=== PATIENT | female | born 1925 | race Caucasian/White ===

== ENCOUNTER 2017-01-04 17:07 | Inpatient (IN) ==
[2017-01-04] MEDS ORDERED: NS 1,000 ML ONE ×2 (17:26→17:35)
[2017-01-04] MEDS ORDERED: NS 1,000 ML IV ONE (17:41)
[2017-01-04] MEDS ORDERED: CARDIZEM ONE (17:41)
[2017-01-04] MEDS ORDERED: ASPIRIN PO STA (17:41)
[2017-01-04] MEDS ORDERED: CARDIZEM IV ONE (17:41)
[2017-01-04 18:01] LABS: BASO% 0.2 % (0.0-0.8); EOS# 0.01 X1000 (0.0-0.7); EOS% 0.1 % (0.0-10.0); HEMATOCRIT 34.4 % (37.0-47.0); LYMPH# 1.18 X1000 (1.2-3.4); LYMPH% 13.1 % (20.5-51.1); MANUAL DIFF NEEDED? NO; MCH 29.9 PG (27-31); MCHC 34.9 g/dL (33-37); MCV 85.6 FL (81-99); MONO# 0.96 X1000 (0.11-0.59); MONO% 10.7 % (1.7-9.3); MPV 10.6 FL (7.4-10.4); NEUT% 75.9 % (42.2-75.2); PLT 259 X1000 (130-400); RBC 4.02 XMIL (4.2-5.4)
[2017-01-04 18:07] LABS: INR 1.15; PROTIME 12.2 Seconds (9.2-11.7); PTT 30.3 Seconds (22.0-36.0)
--- NOTE | 2017-01-04 18:09 | PROVIDER DOCUMENTATION ---
HPI-General Adult - General Chief Complaint: Fever Stated Complaint: weakness/fall Time Seen by Provider: 01/04/17 17:39 Source: patient Allergies/Adverse Reactions: Patient Allergies Allergy/AdvReac Type Severity Reaction Status Date / Time No Known Allergies Allergy Verified 09/28/14 03:13 Home Medications: Home Medication List Medication Instructions Recorded Confirmed Last Taken Type Carboxymethylcellulose Sodium PRN 09/28/14 09/28/14 01/03/17 History [Thera Tears] Cyanocobalamin (Vitamin B-12) 1,000 mcg IJ DIRECTED 09/28/14 09/28/14 History [Cyanocobalamin Injection] Diltiazem HCl [Diltiazem ER] 240 mg PO BID 09/28/14 09/28/14 01/03/17 History FA/Vit C/E/Zinc/Copper/Lut/Barbie 1 tbs PO DAILY 09/28/14 09/28/14 01/03/17 History [Ocuvel Capsule] Irbesartan 300 mg PO DAILY 09/28/14 09/28/14 01/03/17 History Levothyroxine [Synthroid] 100 mcg PO DAILY 09/28/14 09/28/14 01/03/17 History Metoprolol [Lopressor] 50 mg PO BID 09/28/14 09/28/14 01/03/17 History Multivitamins/Minerals [Centrum 1 tab PO DAILY 09/28/14 09/28/14 01/03/17 History Silver] Potassium Chloride 20 meq PO BID 09/28/14 09/28/14 01/03/17 History Warfarin [Coumadin] 4 mg PO QHS 09/28/14 09/28/14 01/03/17 History Digoxin 250 mcg PO DAILY #0 10/01/14 09/28/14 01/03/17 Rx Tramadol HCl [Ultram] 50 mg PO Q8HR PRN #30 tablet 10/01/14 12/29/16 Rx - History of Present Illness -Gen Adult Nature of Presenting Problems: pt presents with malaise ("not feeling good") for sev days, has been getting worse. When questioned, son decribes sx as often as she does. She is unfortunately, a vague historian. ROS reveals fever, was 100.9 here. She had a fever Fri, yest, but none now. Her R eyelid has been red, swollen, droopy, this started some time since Thursday. She has been a little SOB. Palpitations from time to time. No abd pain, no N/V/D, no dysuria, no prob with extremities. Location of Pain/Injury: reports: none Pain Radiation: reports: no radiation Quality of Pain: reports: none Onset/Duration: reports: 3 days ago Timing: reports: still present, getting worse Context/Activities at Onset: reports: none Modifying Factors: improves with: nothing Associated Symptoms: reports: fatigue, fever/chills, malaise, shortness of breath, weakness. denies: chest pain, cough, diarrhea, vomiting Recently seen or treated by another doctor?: No Review of Systems - Adult - REVIEW OF SYSTEMS - ADULT Constitutional: reports: see HPI, fever, fatique Eyes: reports: see HPI Ears, Nose, Mouth & Throat: reports: no symptoms reported Cardiovascular: reports: see HPI Respiratory: reports: see HPI Gastrointestinal: reports: no symptoms reported Genitourinary: reports: no symptoms reported Musculoskeletal: reports: no symptoms reported Integumentary: reports: no symptoms reported Neurological: reports: see HPI Psychiatric: reports: no symptoms reported Endocrine: reports: no symptoms reported Hematologic/Lymphatic: reports: no symptoms reported Allergic/Immunologic: reports: no symptoms reported Past History - Adult - PAST MEDICAL HISTORY-ADULT Review of Records: reports: Medications Reviewed Cardiovascular: reports: A-Fib, HTN Respiratory: reports: denies history Gastrointestinal: reports: denies history Genitourinary: reports: denies history Musculoskeletal: reports: other fractures (pelvic) - SOCIAL HISTORY Smoking: denies Physical Exam-General - PHYSICAL EXAM-ADULT Initial Vital Signs Reviewed: Yes - CONSTITUTIONAL General Appearance: alert, mild distress - EYES Eyes: PERRL/EOMI, pink conjunctivae, other (R upper lid is drooping, sl erythema , sl swelling.) - HEAD, EARS, NOSE, MOUTH & THROAT HENMT: normocephalic/atraumatic, moist mucous membranes, normal ENT inspection, pharynx normal - NECK Neck: full range of motion, supple - RESPIRATORY Respiratory: lungs clear, normal breath sounds, no pleuratic chest pain, no respiratory distress, no accessory muscle use - CARDIOVASCULAR Cardiovascular: irregularly irregular - GASTROINTESTINAL (ABDOMEN) Abdominal Exam: non tender, soft - MUSCULOSKELETAL Back Exam: normal inspection, no CVA tenderness, no vertebral tenderness Extremity: normal range of motion, non-tender Peripheral Pulses: radial (R): 4+, radial (L): 4+ DTR: bicep (R): 4+, bicep (L): 4+, knee (R): 4+, knee (L): 4+, ankle (R): 4+, ankle (L): 4+ - SKIN Integumentary: normal color, normal turgor, warm/dry - NEUROLOGIC Neurologic: no motor/sensory deficits, other (CN II-XII intact, DTRs intact) - PSYCHIATRIC Psych/Mental Status: normal mood/affect, normal thought content, normal thought process, oriented x 3 Progress - PLAN OF CARE/RESULTS Progress/Plan/Lab Results: Vital Signs - 8 hr 01/04/17 17:28 Temperature 99.2 F Pulse Rate 134 H Respiratory Rate 22 Blood Pressure 134/109 O2 Sat by Pulse Oximetry 91 L Laboratory Results - last 24 hr 01/04/17 17:28 WBC 8.98 RBC 4.02 L Hgb 12.0 Hct 34.4 L MCV 85.6 MCH 29.9 MCHC 34.9 RDW Std Deviation 13.0 Plt Count 259 MPV 10.6 H Immature Gran % (Auto) 0.0 Neut % (Auto) 75.9 H Lymph % (Auto) 13.1 L Young % (Auto) 10.7 H Eos % (Auto) 0.1 Baso % (Auto) 0.2 Immature Gran # (Auto) 0.00 Neut # (Auto) 6.81 H Lymph # (Auto) 1.18 L Young # (Auto) 0.96 H Eos # (Auto) 0.01 Baso # (Auto) 0.02 Orders Category Date Time Status Cardiac Monitoring DIRECTED Care 01/04/17 17:41 Active IV Insertion ORDERED Care 01/04/17 17:52 Completed Oxygen Therapy- ED Nursing DIRECTED Care 01/04/17 17:41 Active Saline Loc NOW Care 01/04/17 17:41 Active CHEST-PORTABLE [RAD] Stat Exams 01/04/17 17:41 Taken BLOOD CULTURE [BLDCUL] Stat Lab 01/04/17 17:48 Ordered CBC WITH ELECTRONIC DIFF [HEME] Stat Lab 01/04/17 17:28 Completed CK PROFILE [SP CHEM] Stat Lab 01/04/17 17:28 Received COMPREHENSIVE METABOLIC PANEL [CHEM] Stat Lab 01/04/17 17:28 Received D-DIMER [CHEM] Stat Lab 01/04/17 17:28 Received DIGOXIN [TDM] Stat Lab 01/04/17 17:28 Received LACTATE, PLASMA [CHEM] Stat Lab 01/04/17 17:28 Received MAGNESIUM [CHEM] Stat Lab 01/04/17 17:28 Received PRO B-NATRIURETIC PEPTIDE Stat Lab 01/04/17 17:28 Received PROTIME WITH INR [COAG] Stat Lab 01/04/17 17:28 Received PTT [COAG] Stat Lab 01/04/17 17:28 Received TROPONIN T Stat Lab 01/04/17 17:28 Received UA NIMS W/REFLEX CULT [URINALYSIS] Stat Lab 01/04/17 17:41 Uncollected 0.9% Sodium Chloride Inj [Ns] 1,000 ml Med 01/04/17 17:35 Discontinued .ROUTE As Directed 0.9% Sodium Chloride Inj [Ns] 1,000 ml Med 01/04/17 17:41 Active IV 100 mls/hr Aspirin Med 01/04/17 17:41 Discontinued 325 mg PO STAT STA Diltiazem [Cardizem] Med 01/04/17 17:41 Discontinued 15 mg IV NOW ONE Diltiazem [Cardizem] Med 01/04/17 17:41 Discontinued 25 mg .ROUTE .STK-MED ONE EKG [EKG] Stat Ther 01/04/17 17:41 Ordered Result Diagrams: 01/04/17 17:28 01/04/17 17:28 - CONSULTS/PCP/HOSPITALIST Notification #1 *Consult/PCP/Hospitalist*: Eloy Time Discussed: 18:50 Consult Disposition: Will see in ED, Admit Departure - Departure Date of Disposition Decision: 01/04/17 Time of Disposition Decision: 19:01 DIAGNOSIS: Hyponatremia Disposition: ADMITTED INPATIENT 09 Certified Medical Emergency: Emergent Condition: Good Referrals and Follow-Ups: Maira Lyons MD [Primary Care Provider] - - Critical Care Note This patient required my direct & personal management of CC.: No
--- NOTE | 2017-01-04 18:18 | Diag Imaging Result Doc PS360 ---
CHEST-PORTABLE - 01/04/2017 INDICATION: SOB TECHNIQUE: COMPARISON: 09/29/2014 FINDINGS: Stable hyperexpanded lungs compatible with COPD. Stable mild cardiomegaly. No focal infiltrates, pneumothorax, or pleural effusion. Pulmonary vascularity is grossly normal. IMPRESSION: No change from prior. Electronically signed by Jalil Campoverde 01/04/2017 6:16 PM
[2017-01-04 18:23] LABS: URINE MICRO REVIEW NEEDED? NO; URINE SOURCE CATH
[2017-01-04 18:28] LABS: BILIRUBIN URINE NEGATIVE (NEGATIVE); BLOOD URINE NEGATIVE (NEGATIVE); COLOR YELLOW; GLUCOSE URINE NEGATIVE (NEGATIVE); LEUKOCYTES URINE NEGATIVE (NEGATIVE); NITRITE URINE NEGATIVE (NEGATIVE); PROTEIN URINE 100 mg/dL (NEGATIVE); SP GRAVITY URINE 1.017; TURBIDITY URINE HAZY (CLEAR); UR EPITHELIAL CELLS <10 /HPF (<10); URINE BACTERIA 4+ /HPF; URINE CULTURE NEEDED? YES; URINE RBC <10 /HPF (<10); URINE WBC <10 /HPF (<10); UROBILINOGEN URINE NORMAL (NORMAL)
[2017-01-04 18:47] LABS: CALCIUM 8.6 mg/dL (8.8-10.2); POTASSIUM 3.8 mmol/L (3.5-5.1); TOTAL BILIRUBIN 0.76 mg/dL (0.20-1.00); TOTAL PROTEIN 7.9 g/dL (6.3-8.3)
[2017-01-04] MEDS ORDERED: NS 500 ML IV ONE (18:49)
[2017-01-04] MEDS ORDERED: LASIX IV SCH (19:45)
[2017-01-04] MEDS ORDERED: LASIX IV ONE (19:46)
[2017-01-04] MEDS ORDERED: MISC. PHARMACY COMMUNICATION SCH (20:00)
[2017-01-04] MEDS ORDERED: ZOFRAN IV PRN (20:27)
[2017-01-04] MEDS ORDERED: CARDIZEM 100 MG/NS 100 MG/100 ML IVPB IV SCH (20:27)
[2017-01-04] MEDS ORDERED: TOBRAMYCIN 100 MG in NS 100 ML IV ONE (20:27)
[2017-01-04] MEDS ORDERED: TYLENOL PO PRN (20:27)
--- NOTE | 2017-01-04 20:59 | Diag Imaging Result Doc PS360 ---
HEAD W/O CONTRAST - 01/04/2017 INDICATION: HEADACHE TECHNIQUE: A CT dose reduction protocol was used. COMPARISON: 09/28/2014 FINDINGS: Stable diffuse atrophy and chronic microvascular disease. Stable small calcified extra-axial nodule compatible with a small right temporal lobe meningioma. This measures about 1 cm. No hemorrhage or mass effect. The skull is intact. The sinuses, mastoids, and middle ears are clear. IMPRESSION: No change from prior. Electronically signed by Jalil Campoverde 01/04/2017 8:57 PM
[2017-01-04] MEDS ORDERED: COUMADIN PO SCH (21:00)
[2017-01-04] MEDS: CARDIZEM 100 MG/NS 100 MG/100 ML IVPB IV SCH (21:02)
[2017-01-04] MEDS: KLOR-CON PO SCH (21:58)
[2017-01-04] MEDS: ROCEPHIN 1 GM/NS 1 GM/50 ML IVPB IV SCH (22:00)
[2017-01-05 05:28] LABS: CALCIUM 8.2 mg/dL (8.8-10.2); POTASSIUM 2.9 mmol/L (3.5-5.1)
--- NOTE | 2017-01-05 05:43 | EKG Report ---
Test Performed on : 01/04/2017 5:28:44 PM Test Reason : CP/Re-Ordered Blood Pressure : / mmHG Vent. Rate : 149 BPM Atrial Rate : 131 BPM P-R Int : 000 ms QRS Dur : 116 ms QT Int : 324 ms P-R-T Axes : 000 096 -17 degrees QTc Int : 510 ms Atrial fibrillation. with rapid ventricular response. Right bundle branch block Abnormal ECG When compared with ECG of 28-SEP-2014 04:50, Vent. rate has increased BY [address] more depressed in Anterior leads Unconfirmed Result
[2017-01-05] MEDS: SYNTHROID PO SCH (06:24)
--- NOTE | 2017-01-05 08:48 | PROGRESS NOTE ---
DATE: 01/05/2017 SUBJECTIVE: Mrs. Jauregui was admitted to [facility] with atrial fibrillation with rapid ventricular rate. She has a longstanding history of chronic atrial fibrillation. Her heart rate had been in the range of 115-120. We started a Cardizem drip last night and her heart rate is ranging from 93 to 110. She denies any chest pain, dyspnea or anginal equivalents. Interestingly, both of her troponins are elevated. Her initial troponin was 0.095 and her 2nd troponin was 0.113. She denies any PND orthopnea or increasing peripheral edema. Her serum sodium has increased from 119-127. She seems much more alert and easily arousable. This morning, she answered questions appropriately. She is oriented to name and place. OBJECTIVE: Vital signs: Temperature 99.2, pulse 106 and irregular, respiratory rate 21, BP 141/84. O2 saturations 98-99% on 2 L of O2. Cardiovascular: Irregularly irregular. Lungs: Clear. Abdomen: Soft, nontender, with active bowel sounds. No hepatosplenomegaly. No abdominal bruits. ASSESSMENT AND PLAN: 1. Chronic atrial fibrillation with rapid ventricular rate. We will continue to titrate the Cardizem drip to maintain her heart rate below 100. I am going to resume the metoprolol 50 mg b.i.d. Once her heart rate is consistently below 100, we will try to switch her back to oral Cardizem. Previously, she had been taking Cardizem 240 mg b.i.d. Her ProTime is subtherapeutic. I am going to increase the Coumadin to 7.5 mg at night. We will recheck a 2D echocardiogram as well. Her troponins are elevated. The CKs are normal. I am not sure whether this truly represents a non-ST segment elevation myocardial infarction, or whether the troponin is falsely elevated due to the renal insufficiency. We will consult Cardiology. 2. Urinary tract infection. Her urine smelled very pungent last night. I have started Rocephin and tobramycin pending cultures. 3. Hypokalemia. I am going to recheck a magnesium level. If the magnesium is low I will replace the magnesium prior to giving her additional potassium. 4. Primary hypothyroidism. Her TSH was 5.48. I increased the levothyroxine to 112 mcg daily. 5. Hyponatremia I do not believe that there is any evidence of SIADH. Serum sodium has jumped from 119 to 127. cc: Gabi Lyons MD MTDD
[2017-01-05] MEDS: CENTRUM SILVER PO SCH (08:51)
[2017-01-05] MEDS: LOPRESSOR PO SCH ×2 (08:51→21:17)
[2017-01-05] MEDS: OCUVITE LUTEIN & ZEAXANTHIN PO SCH (08:51)
[2017-01-05] MEDS: KLOR-CON PO SCH ×2 (08:51→21:17)
[2017-01-05] MEDS: POTASSIUM CHLORIDE 20 MEQ/SWI 20 MEQ/100 ML IVPB IV SCH ×2 (08:52→10:38)
[2017-01-05] MEDS: LOVENOX SUBQ SCH (08:52)
[2017-01-05] MEDS: LANOXIN PO SCH (08:52)
[2017-01-05] MEDS: AVAPRO PO SCH (08:53)
--- NOTE | 2017-01-05 09:53 | HISTORY AND PHYSICAL ---
CHIEF COMPLAINT: Lethargy. HOSPITAL COURSE: Ms. Jauregui is an 89-year-old lady with a history of chronic atrial fibrillation, essential hypertension, mixed hyperlipidemia, primary hypothyroidism and mild cognitive impairment, who is well known to me. She was brought to the ER for evaluation of lethargy. As stated earlier, she does have a longstanding history of chronic atrial fibrillation. She remains in atrial fibrillation. Her heart rate was fluctuating in the range of 110-130. She denied any chest pain, but was with complaint of mild dyspnea with activities of daily living and palpitations. She denied any PND or orthopnea, but did have dyspnea with exertion and mild increasing peripheral edema. Her proBNP was in excess of 6,000. The family reported that she had been more lethargic and difficult to arouse. She had basically been in bed and required assistance getting out of bed in order to use a bedside commode. They felt that she was more confused and disoriented at times. Her CT scan of the brain demonstrated chronic white matter changes. There was no evidence of an acute stroke. She was noted to have a very pungent smelling urine. Her initial urinalysis is clear. Cultures were obtained. Her chest x-ray was grossly normal. PAST MEDICAL HISTORY: As above. PAST SURGICAL HISTORY: Hemorrhoidectomy. ALLERGIES: No known drug allergies. FAMILY HISTORY: Father had hypertension. at the age of 55. Her mother had Alzheimer's dementia and at the age of 87. SOCIAL HISTORY: She denies the use of tobacco, alcohol, or illicit drugs. She is a . MEDICATIONS: Vitamin B12 injections monthly, diltiazem 240 mg b.i.d., Flomax 0.4 mg daily, Lopressor 50 mg b.i.d., KCl 20 mEq b.i.d., Synthroid 100 mcg daily, Ultram 1 tablet q.8 hours p.r.n. pain, Coumadin 4 mg at bedtime. REVIEW OF SYSTEMS: She denies any recent weight gain or weight loss.HEENT: She wears glasses. She is hard of hearing. Cardiovascular: No chest pain. She has palpitations. Pulmonary: She has dyspnea with exertion. No paroxysmal nocturnal dyspnea or orthopnea. GI: No reflux, dysphagia, melena, hematochezia, change in bowel habits, or rectal bleeding. Endocrine: No polyuria, no polydipsia. No cold or heat intolerance. Skin: No easy bruisability. : She has leakage of urine with coughing or laughing. Skin: No easy bruisability. Neurologic: No migraines or seizures. Psychiatric: No history of depression. PHYSICAL EXAMINATION: GENERAL: This is in a chronically ill-appearing, 89-year-old lady in no apparent distress. VITAL SIGNS: Temperature 99.3 degrees, pulse 126 and irregular, respiratory rate 24, blood pressure 153/88. HEENT: Fundi with arteriolar wall thickening. Pupils equal, round, reactive to light. Extraocular eye movements intact. TMs without bullae. NECK: Supple. No masses, jugular venous distention, or bruits. CARDIOVASCULAR: Irregularly irregular with a soft systolic murmur at the left sternal margin. LUNGS: Decreased breath sounds with increased period of expiration. There are faint crackles in the bases. ABDOMEN: Soft, nontender, with active bowel sounds. EXTREMITIES: With trace ankle edema. SKIN: No palpable purpura. BREASTS/BOTTLE INSPECTOR/RECTAL EXAMINATION: Deferred. NEUROLOGICAL: She moves all extremities grossly. She seems somewhat sedated. She is oriented to name and place. LABORATORY STUDIES: Various laboratory studies were obtained. A CBC demonstrated a white count of 8.98, hemoglobin 12, hematocrit 34.4, and a platelet count of 259,000. Her prothrombin time was 12.2 with an INR of 1.1. A CMP demonstrates the following: Sodium 119, potassium 3.8, chloride 78, CO2 23, BUN 32, creatinine 1.4. Serum osmolality 261. ProBNP and 6930. Troponin 0.095. Lactate 1.6. Urine osmolality 423. Urine sodium 110. ASSESSMENT AND PLAN: 1. Chronic atrial fibrillation with rapid ventricular rate. I will admit her to the intensive care unit. I will hold oral Cardizem and Toprol. I will continue digoxin and place her on a Cardizem drip and titrate to maintain a heart rate less than 100. We will check serial cardiac enzymes. We will arrange for a 2D echocardiogram with color Doppler and spectral flow Doppler in the morning. I will begin Lovenox 40 mg subcutaneously daily and increase the Coumadin to 7.5 mg at night. I want the INR between 2 and 3. 2. Metabolic encephalopathy. I suspect that the metabolic encephalopathy is due to the hyponatremia. She has a serum sodium of 119. She appears to be mildly volume overloaded. I do not believe that she has syndrome of inappropriate antidiuretic hormone secretion given the volume overload. We will diurese her with Lasix and place her on a salt and fluid restricted diet. I will recheck a BMP in the morning. 3. Primary hypothyroidism. I will increase the Synthroid to 112 mcg daily, as her TSH was 5.48. 4. Suspected urinary tract infection. I will begin Rocephin and tobramycin, pending a urine culture and sensitivity. Ms. Jauregui has a living will. She has stated that in the event of a cardiopulmonary arrest that she does not want any heroic measures to be undertaken. A No Code Blue Level 1 has been established. Given her clinical presentation and comorbid conditions, I believe that admission to the hospital is both reasonable and necessary. I anticipate that she will be in the hospital for at least 2 midnights and I will therefore place her in inpatient status. cc: Gabi Lyons MD
[2017-01-05] MEDS: CARDIZEM 100 MG/NS 100 MG/100 ML IVPB IV SCH (10:36)
--- NOTE | 2017-01-05 11:20 | CONSULTATION ---
DATE OF CONSULTATION: 01/05/2017 INDICATION: Atrial fibrillation, elevated BNP and troponin levels. HISTORY OF PRESENT ILLNESS: Ms. Jauregui is an 89-year-old, white female with a history of chronic atrial fibrillation, hypertension, and hyperlipidemia. She is a patient of Dr. Lyons and last saw Dr. Upton in the clinic a little over 3 years ago. She was brought into the ER for evaluation of general malaise for roughly the last week. She cannot think of any inciting factors but thinks that she may have had a little dysuria and has had not had much solid food oral intake. She has had issues with atrial fibrillation in the past but seems to be tolerating it from a rate control standpoint with chronic atrial fibrillation. She has been maintained on Coumadin in the interim. No recent fevers that she is aware of and no recent vomiting, although there may have been some nausea. The patient is a somewhat difficult historian. She is not having any episodes of diarrhea. No recent cough. She has generalized pain complaints throughout but no specific chest complaint. PAST MEDICAL HISTORY: 1. Significant for hypertension. 2. Chronic atrial fibrillation. 3. Hyperlipidemia. 4. Hypothyroidism. 5. Mild cognitive impairment. SOCIAL HISTORY: No tobacco, alcohol, or illicit drugs. She is a . Son is present at bedside. FAMILY HISTORY: Father had hypertension. Mother had Alzheimer's. REVIEW OF SYSTEMS: A 10 system review of systems is negative except for those things mentioned in the HPI. However, it is a somewhat limited history secondary to the patient's cognitive impairment. PHYSICAL EXAMINATION: Vital Signs: Most recently, she has been afebrile here. She had a T-max of 100 degrees at 1812. Her blood pressure is 159/79. Heart rate is 108 this morning. General: She is in no acute distress. HEENT: Oropharynx is moist. Poor dentition. Eye examination shows pink conjunctivae and white sclerae. Neck: Examination shows no obvious thyromegaly or thyroid tenderness. Cardiovascular: She is in an irregularly irregular rate and rhythm, consistent with her chronic atrial fibrillation. She is rate controlled this morning. She has no lower extremity edema. Chest: Examination is relatively clear. She has a poor inspiratory effort. No increased work of breathing. Abdomen: Soft, nontender, and nondistended. She has no obvious organomegaly. Skin Examination: Warm and dry throughout without any rashes. Neurological: She seems to be moving all extremities well. She has no obvious lateralizing deficits. No increased work of breathing. Psychiatric: She is alert, oriented, and pleasant. She has normal mood and affect. PERTINENT DATA: She had an EKG showing what appears to be a right bundle branch block. She has diffuse ST depression throughout the anterior and inferior leads. She appears to be in atrial fibrillation. She had a head CT performed which demonstrates no obvious acute changes. She has a right temporal lobe meningioma, chronic microvascular changes. She had a chest x-ray performed, demonstrating no obvious changes from prior. Laboratory data shows white count of 8.98, her hematocrit is 34, her platelet count is 259,000. Her INR is 1.15. D-dimer is normal. Sodium is 127 with an original of 119, potassium 2.9, BUN 28, creatinine 1.1. Cardiac enzymes have been minimally elevated with the initial of 0.095 with subsequent of 0.113. Her magnesium level is 1.9 this morning. Her lactate level on presentation was 1.6. Her urinalysis had 4+ bacteria with less than 10 WBCs per high-powered field. Digoxin level is 0.3. ASSESSMENT: 1. Chronic atrial fibrillation. 2. General lethargy and malaise. PLAN: She may have some diastolic heart failure. However, she did not have any evidence of pulmonary edema on her chest x-ray. She has already diuresed a significant amount with 1 dose of Lasix and is negative around 1 L thus far. Her sodium has come up quite a bit which could be the source of many of her symptoms. I will hold off the Samsca. She has already corrected 8 points on her sodium in less than 24 hours. May consider a dose tomorrow. We may consider outpatient diuretics. For now, we will plan on continuing on the current course, following up on her ultrasound. cc: MD Gabi Salazar MD
--- NOTE | 2017-01-05 14:49 | ECHO REPORT ---
ORDER DATE: 01/05/2017 ECHOCARDIOGRAPHIC MEASUREMENTS: 1. Interventricular septum 1.0. Left ventricular posterior wall 1.0. Diastolic diameter 4.6. Left atrium 5. Aorta 3.7. 2. Normal left ventricular cavity size. Estimated ejection fraction of 55%. There is moderate mitral annular calcification. Mitral valve leaflets are mildly thickened, opening normally. Aortic valve leaflets are trileaflet, sclerosed. 3. Tricuspid valve was normal. Pulmonic valve was normal. 4. Peak velocity across the aortic valve less than 2 m/sec. There is no aortic stenosis. There is mild aortic regurgitation. There is moderate mitral regurgitation. There is mild tricuspid regurgitation. Peak velocity across the tricuspid valve was 3 m/sec. Pulmonary artery systolic pressure of 50 mmHg. There is trace pulmonary regurgitation. 5. There is no pericardial effusion or obvious intracardiac mass or thrombus seen. cc: MD Gabi Márquez MD
[2017-01-05] MEDS: ROCEPHIN 1 GM/NS 1 GM/50 ML IVPB IV SCH (21:17)
[2017-01-05] MEDS: COUMADIN PO SCH (21:17)
[2017-01-06] MEDS: CARDIZEM 100 MG/NS 100 MG/100 ML IVPB IV SCH (05:23)
[2017-01-06] MEDS: SYNTHROID PO SCH (06:20)
[2017-01-06] MEDS: LOPRESSOR PO SCH ×2 (08:29→20:39)
[2017-01-06] MEDS: KLOR-CON PO SCH ×2 (08:29→20:39)
[2017-01-06] MEDS: CARDIZEM CD PO SCH (08:29)
[2017-01-06] MEDS: LOVENOX SUBQ SCH (08:29)
[2017-01-06] MEDS: CENTRUM SILVER PO SCH (08:29)
[2017-01-06] MEDS: LANOXIN PO SCH (08:29)
[2017-01-06] MEDS: AVAPRO PO SCH (08:30)
[2017-01-06] MEDS ORDERED: DILTIAZEM HCL 240 MG PO SCH (09:00)
[2017-01-06 09:07] LABS: INR 1.19; PROTIME 12.6 Seconds (9.2-11.7)
[2017-01-06 09:25] LABS: CALCIUM 8.3 mg/dL (8.8-10.2); POTASSIUM 3.4 mmol/L (3.5-5.1)
--- NOTE | 2017-01-06 10:07 | PROGRESS NOTE ---
DATE: 01/06/2017 HISTORY: Ms. Jauregui has a history of chronic atrial fibrillation and was admitted to [facility] with atrial fibrillation with a rapid ventricular rate. We started a Cardizem drip and she is down to a Cardizem drip of 1 mg per hour. Heart rate has been in the mid 80s. She denies any chest pain, palpitations, or anginal equivalents. Her prothrombin time was subtherapeutic on admission. We increased the Coumadin to 7.5 mg at night. An echocardiogram demonstrated normal left ventricular cavity size with an EF of 55%. There was moderate mitral annular calcification. There was no aortic stenosis. There was mild aortic regurgitation. There was moderate mitral regurgitation. She is breathing comfortably. She is maintaining O2 saturations of 94-99% on 2 L of O2 per nasal cannula. PHYSICAL EXAMINATION: Vital Signs: Temperature 98.3 degrees, pulse 77, respiratory rate 22, BP 143/70. CV: Irregularly irregular with a 2/6 systolic ejection murmur at the left sternal margin. Lungs: Clear. Abdomen: Soft, nontender, with active bowel sounds. ASSESSMENT AND PLAN: 1. Chronic atrial fibrillation with rapid ventricular rate. I am going to wean her off the Cardizem drip. We will continue metoprolol 50 mg twice a day and I am going to resume diltiazem CD 240 mg daily. We will continue Coumadin 7.5 mg at night. I will recheck a prothrombin time this morning. I would like her INR between 2 and 3. 2. Hypertension. Her blood pressure is stable. We will continue Avapro 300 mg daily, metoprolol, and will monitor her blood pressure closely with the resumption of the diltiazem. We will diurese her as needed. 3. Primary hyperthyroidism. We recently increased the dosage of levothyroxine to 112 mcg daily and we will recheck a TSH and free T4 as an outpatient in 3 months. 4. General debility. At this point, she is not independent enough to return home safely. We will consult forensic social worker to look for a rehab bed. The family would like to go to [facility]. We will consult physical therapy for evaluation. cc: Gabi Lyons MD
[2017-01-06] MEDS ORDERED: SAMSCA PO ONE (12:24)
[2017-01-06] MEDS ORDERED: LASIX IV ONE (12:48)
--- NOTE | 2017-01-06 13:09 | PROGRESS NOTE ---
DATE: 01/06/2017 SUBJECTIVE: Gurinder continues to feel poorly. She says she feels about as well as she did yesterday. Continues to be at a diffuse malaise/fatigue. PHYSICAL EXAMINATION: Vital Signs: Afebrile. Heart rate is 67. Blood pressure 128/60. Her I Os over the course of the hospitalization are total negative at 1.8 3 L. General: No acute distress. Cardiovascular: She is in a regular rate and rhythm. No murmurs. No S3. She has no lower extremity edema. Chest: Exam sounds relatively clear with poor inspiratory effort. Abdomen: Soft, nontender. PERTINENT DATA: She had an echocardiogram performed yesterday showing a preserved ejection fraction of 55%. Moderate MR was noted. RV systolic pressure of 50, mild TR. Aortic valve was functioning normally. LABORATORY DATA: Shows a sodium 122, potassium 3.4, BUN 23, creatinine 0.9 which is improved. ASSESSMENT: 1. Diastolic heart failure. 2. Chronic atrial fibrillation. PLAN: We will continue with current medications with the exception of adding in a 20 mg of IV dose of Lasix today along with 15 mg of Samsca. We will check a BMP and a proBNP in the morning. cc: MD Gabi Salazar MD
[2017-01-06] MEDS: OCUVITE LUTEIN & ZEAXANTHIN PO SCH (13:20)
--- NOTE | 2017-01-06 13:45 | PROGRESS NOTE ---
DATE: 01/06/2017 Mrs. Jauregui had hyponatremia with a serum sodium of 119 on admission. She appeared to be mildly volume overloaded. We restricted her fluids and diuresed her with Lasix. Serum sodium edgar to 127. Her serum sodium was back down to 122 today. She appears clinically euvolemic. Her blood pressure is normal. She is not tachycardic. I am going to check a urine osmolality, plasma osmolality and urine sodium. If based upon the results I am concerned that she may have SIADH, if her urine studies are consistent with SIADH I will try Samsca. We will consult Dr. Jordan. cc: Gabi Lyons MD
[2017-01-06 15:49] LABS: FREE T4 1.48 ng/dL (0.93-1.70)
--- NOTE | 2017-01-06 16:24 | CONSULTATION ---
DATE OF CONSULTATION: 01/06/2017 REASON FOR ADMISSION: Increased lethargy. REASON FOR CONSULTATION: Hyponatremia. CONSULTING PHYSICIAN: Dr. Ramon Lyons. HISTORY OF PRESENT ILLNESS: Ms. Jauregui is an 89-year-old, white female with a history of chronic atrial fibrillation, hypertension and mixed hyperlipidemia with hypothyroidism. Patient is known to Dr. Lyons and has been followed closely according to the son. 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 She gets about at home with a walker. Subsequently , he stated that they went out of town on Thursday. He had checked on her by phone. She stated that she had felt weak and had complaints of a headache. When they returned back into town, they had gotten home, and she had reported that she had fallen between Thursday night and Thursday morning and had scraped her face. Son states that he does not believe that she completely took a full fall, that she probably just slipped down and actually fell in that direction. She does deny any chest pain, no orthopnea, no increased work of breathing. She does have some palpitation with mild exertion according to her son. Patient remains slightly confused. She was brought to [facility] Emergency Department and found to be lethargic with difficult to arouse. He had called the wood drill operator. Upon arrival, it was found that she had hyponatremia and she continued with her atrial fibrillation. She was also noted to have a very foul smelling urine. Cultures were obtained. Subsequently, she was admitted. She has been hospitalized for the last 2 days. Cardiology has been consulted to help manage her atrial fibrillation and her fluid volume overload with an elevated BNP. She did have a CT scan of the brain which demonstrated chronic white matter changes. No acute stroke or hemorrhage. Chest x-ray was negative. PAST MEDICAL HISTORY: 1. Chronic atrial fibrillation. 2. Hypertension. 3. Hyperlipidemia. 4. Primary hypothyroidism. 5. Mild cognitive impairment. 6. It appears she has also had mild hyponatremia back to 2014 with a high sodium noted in the hospital of 133. Patient was admitted with a sodium of 119. She is up on CIC and is currently being evaluated. PAST SURGICAL HISTORY: She has had hemorrhoidectomy. FAMILY HISTORY: Patient lives alone. She has family who are attentive to her care. Father had hypertension. He at the age of 55. Mother had Alzheimer's with dimension and at the age of 87. SOCIAL HISTORY: Patient lives alone. She is a . She has family who are attentive to her care. Denies tobacco, alcohol or illicit drug use her. CURRENT ALLERGIES: Listed as no known drug allergies. MEDICATIONS: B12, diltiazem, Flomax, Lopressor, KCl, Synthroid, Ultram and Coumadin. REVIEW OF SYSTEMS: Times 10 with pertinent positives listed above in the HPI. Vital Signs: Temperature 97.5 degrees, blood pressure 147/71, heart rate 65, respirations 16. She is on 2 L nasal cannula. Her last recorded saturation is 100%. LABORATORY THIS A.M.: Sodium 122, potassium 3.4, chloride is 84, CO2 25, BUN 23 , creatinine 0.9, glucose 100. Her anion gap is 13, calcium is 8.3. White count 8.98, hemoglobin 12, hematocrit 34.4, with a platelet count of 259,000. Urine culture and sensitivity has showed viridans Streptococcus. Her plasma lactate is 1.6. Urine sodium is less than 10. Urine osmolality is greater than 518. Digoxin level 0.3. Patient has had 492 in. She has had 300 out per Gan catheter. Her ProTime is 12.6, PTT 1.19. White count 8.98. Hemoglobin 12, hematocrit 34.4, with a platelet count of 259,000. Urinalysis is trace ketones, positive for proteinuria, negative for hematuria. Blood culture shows no growth after 48 hours. PHYSICAL EXAMINATION: General: This is an 89-year-old white female. She is resting quietly in bed. She remains confused. She is pleasant. She is able to assist with exam. Skin: Warm and dry. HEENT: Normocephalic. Patient has abrasions to her left upper occipital forehead area down into the brim of the nose and along her cheekbone. Her pupils are equal and reactive to light. Neck: Supple. Trachea midline. No evidence of JVD. Cardiovascular: She has an irregular rate and rhythm with a soft systolic murmur. No gallop. She is atrial fibrillation on the monitor. Lungs: Poor inspiratory effort. Otherwise, clear to auscultation anterior. No crackles or wheezes noted. She is currently on O2. Abdomen: Soft, nontender. Positive bowel sounds. Extremities: She has trace ankle edema. Otherwise, no clubbing, cyanosis. Genitourinary: She has a Gan catheter in place. She has adequate urine out. This is clear yellow urine. Skin: Again, abrasions to her upper facial area. Otherwise dry and intact. Neurological: She remains confused to most recent events. Able to assist with exam. ASSESSMENT AND PLAN: 1. Hyponatremia, this is not appear to be SIADH of origin with a low urine sodium and an elevated urine osmolality. She has been started on 50 mg a Samsca per Cardiology. We agree with repeating 3 further doses. We will check serum sodiums every 8 hours. To call if less than 118 or takes a greater than 2 point jump from her previous labs. Patient is not on a fluid restriction. It is also noted that patient is hypothyroid. We will check her TSH and her free T4 levels. 2. Metabolic encephalopathy. Again, this may be related to her hyponatremia. Again her serum sodium was 119 and is up to 122. She has been given 1 dose of Samsca. We will repeat 3 more doses, continue to monitor her sodium levels. She has a basic order for the a.m. 3. Possible urinary tract infection. Patient is currently on Rocephin with no indications of any changes at this time. I would like to thank you for allowing us to follow with this patient. Seen, data reviewed, discussed with Ricarda Narayan on 01/06/17. I agree with the above assessment and plan of care. rg Dictated by OTONIEL Goodman for Jr Jordan MD cc: OTONIEL Goodman MD M. Neel Roberts, MD [facility]ENTER[facility]
[2017-01-06] MEDS: COUMADIN PO SCH (20:39)
[2017-01-06] MEDS: ROCEPHIN 1 GM/NS 1 GM/50 ML IVPB IV SCH (20:39)
[2017-01-07] MEDS: SYNTHROID PO SCH (06:16)
[2017-01-07 06:22] LABS: CALCIUM 8.6 mg/dL (8.8-10.2); POTASSIUM 3.4 mmol/L (3.5-5.1)
[2017-01-07] MEDS ORDERED: SAMSCA PO SCH (09:00)
--- NOTE | 2017-01-07 09:36 | Diag Imaging Result Doc PS360 ---
EXAM: CHEST-1 VIEW HISTORY: assess chf TECHNIQUE: Portable upright AP COMPARISON: 01/04/2017 FINDINGS: The lungs remain well expanded. The heart remains mildly prominent. No pleural effusions identified. Questionable new infiltrate in the right upper lung. IMPRESSION: Questionable new right upper lung infiltrate. Follow-up PA and lateral recommended.. Electronically signed by Maninder Iraheta 01/07/2017 9:34 AM
[2017-01-07] MEDS: AVAPRO PO SCH (10:03)
[2017-01-07] MEDS: CENTRUM SILVER PO SCH (10:03)
[2017-01-07] MEDS: KLOR-CON PO SCH ×2 (10:03→21:57)
[2017-01-07] MEDS: LANOXIN PO SCH (10:04)
[2017-01-07] MEDS: LOPRESSOR PO SCH ×2 (10:05→21:57)
[2017-01-07] MEDS: LOVENOX SUBQ SCH (10:05)
[2017-01-07] MEDS: CARDIZEM CD PO SCH (10:05)
[2017-01-07] MEDS: OCUVITE LUTEIN & ZEAXANTHIN PO SCH (10:07)
[2017-01-07] MEDS ORDERED: SAMSCA PO ONE (13:07)
--- NOTE | 2017-01-07 13:34 | PROGRESS NOTE ---
DATE: 01/07/2017 SUBJECTIVE: Ms. Jauregui reports she feels somewhat better today. She thinks her generalized malaise/fatigue has improved somewhat. PHYSICAL EXAMINATION: Vital signs: Afebrile. Heart rate is 75. Blood pressure 137/58. Her input and output for the course of the hospitalization have been -3.7 L. General: In no acute distress. Cardiovascular: She sounds to be in a regular rate and rhythm. No obvious murmurs. She has no S3, no lower extremity edema. Chest: Exam sounds relatively clear. No increased work of breathing. Abdomen: Soft, nontender. PERTINENT DATA: Her sodium is 128 which is up from 126, potassium 3.4, BUN 27, creatinine 1.2. ProBNP is 4196 which is down from 4930. ASSESSMENT: 1. Diastolic heart failure. 2. Hyponatremia. PLAN: I will dose her again with Samsca [address] her on oral furosemide at 20 mg daily. She already has laboratories ordered in relation to sodium levels. cc: MD Gabi Salazar MD
--- NOTE | 2017-01-07 13:38 | PROGRESS NOTE ---
DATE: 01/07/2017 SUBJECTIVE: Ms. Jauregui remains in atrial fibrillation. Her heart rate is well controlled. Heart rate is ranging from 75 to 78 on oral metoprolol and Cardizem. She denies any chest pain, palpitations, or anginal equivalents. She is breathing more comfortably. She denies any PND, orthopnea, or increasing peripheral edema. An echocardiogram demonstrated preserved ejection fraction of 55% and moderate mitral regurgitation. It was felt that she had some degree of diastolic heart failure. Serum sodium is trending upward. Her sodium jumped from 122 to 128 today with fluid restriction and a 1-time dosage of Samsca. It does not appear that she truly has SIADH. We will recheck a BMP in the morning. OBJECTIVE: Vital signs: Temperature 98.3 degrees, pulse 75 respirations 22, blood pressure 137/58. Cardiovascular: Irregularly irregular with a 2 over 6 systolic ejection murmur. Lungs: Faint crackles in the bases. Abdomen: Soft, nontender, with active bowel sounds. Extremities: Without edema. ASSESSMENT AND PLAN: 1. Chronic atrial fibrillation. Heart rate is well controlled. We will continue both Cardizem and Toprol for rate control. We will titrate the Coumadin to maintain an INR of 2 to 3. 2. Hyponatremia. The etiology of her hyponatremia is most likely multifactorial. She did have some evidence of fluid overload. She has been diuresed with Lasix. It does not appear that the low sodium is due to syndrome of inappropriate antidiuretic hormone secretion. She got a 1-time dosage of Samsca. We will continue Lasix, fluid restriction, and recheck a BMP in the morning. 3. Metabolic encephalopathy. Clinically, she is much more alert and interactive as her sodium has normalized. 4. Urinary tract infection. Urine cultures grew out viridans Streptococcus. She is on Rocephin. She remains afebrile. Blood cultures are negative. We will switch her to oral antibiotics on discharge. cc: Gabi Lyons MD
[2017-01-07] MEDS: LASIX PO SCH (13:54)
--- NOTE | 2017-01-07 14:17 | PROGRESS NOTE ---
DATE: 01/07/2017 DATE SEEN: 01/07/2017 TIME SEEN: 07:25 SUBJECTIVE: Ms. Jauregui is resting quietly in bed. She states that she has been sleeping well. Her left eye is slightly swollen and she states that she cannot remember why. OBJECTIVE: Vital Signs: Her most recent vital signs are temperature is 98.8 degrees, blood pressure 180/70, heart rate 78, respirations 18. She is on 2 L nasal cannula. Last recorded saturation 98%. She has had 537 in, she has had 2200 out per Gan catheter. She is -4 L fluid balance. LABS: Sodium 128, potassium 3.4, chloride is 88, CO2 25, BUN 27, creatinine 1.2. Glucose 97. Calcium is 8.6. She has a proBNP of 4196. Her last hemoglobin is 12 on the . TSH is 1.16, free T4 is 1.48. PHYSICAL EXAMINATION: General: This is an 89-year-old, white female. She is currently resting in bed. She appears chronically ill. She is in no acute distress. Skin: Warm and dry. HEENT: Normocephalic, atraumatic. Conjunctivae is pale. She continues with healing abrasions to her left upper occipital forehead, done to the left rim of the nose and cheek bone. Pupils are equal and reactive to light. Neck: Supple. Trachea midline. No JVD. Cardiovascular: Irregular rate and rhythm. She continues with a soft systolic murmur. No gallop. She remains in atrial fibrillation on the monitor. Lungs: Diminished breath sounds bilateral. She remains on O2. Equal excursion. Abdomen: Round, soft, nontender. Positive bowel sounds. Extremities: Have trace pretibial edema. No clubbing or cyanosis. Genitourinary: Gan catheter remains in place with adequate urine out. Integumentary: As mentioned above. Neurological: She remains confused. Alert to person only. ASSESSMENT AND PLAN: 1. Hyponatremia. The patient does not appear in to be and syndrome of inappropriate antidiuretic hormone secretion origin. She had received 1 dose of Samsca secondary to her evaluation this a.m. She appears to be more dehydrated than anything. She does have an elevated B-type natriuretic peptide. We will hold on IV fluid intake and encourage p.o. only. We will hold her remaining doses of Samsca after today. We will continue to monitor and evaluate. 2. Metabolic encephalopathy. This does continue. It appears that the patient may have possible underlying dementia. We will check with the family in regards with this. 3. Possible urinary tract infection. She remains on Rocephin without any changes to renal dosing. I would to thank you for allowing us to follow with this patient. Seen, data reviewed, discussed with Ricarda Narayan on 01/07/17. I agree with the above assessment and plan of care. rg Dictated by OTONIEL Goodman for Jr Jordan MD cc: OTONIEL Goodman MD M. Neel Roberts, MD [facility]
[2017-01-07] MEDS: ROCEPHIN 1 GM/NS 1 GM/50 ML IVPB IV SCH (21:56)
[2017-01-07] MEDS: COUMADIN PO SCH (21:57)
[2017-01-08 05:32] LABS: INR 1.38; PROTIME 14.8 Seconds (9.2-11.7)
[2017-01-08 06:06] LABS: ALBUMIN 3.7 g/dL (3.5-5.0); CALCIUM 8.9 mg/dL (8.8-10.2)
[2017-01-08] MEDS: SYNTHROID PO SCH (06:11)
[2017-01-08] MEDS: LOVENOX SUBQ SCH (07:59)
[2017-01-08] MEDS: OCUVITE LUTEIN & ZEAXANTHIN PO SCH (08:00)
[2017-01-08] MEDS: KLOR-CON PO SCH (08:00)
[2017-01-08] MEDS: LANOXIN PO SCH (08:00)
[2017-01-08] MEDS: LOPRESSOR PO SCH (08:00)
[2017-01-08] MEDS: LASIX PO SCH (08:01)
[2017-01-08] MEDS: CENTRUM SILVER PO SCH (08:01)
[2017-01-08] MEDS: CARDIZEM CD PO SCH (08:01)
[2017-01-08] MEDS: AVAPRO PO SCH (08:01)
[2017-01-08] MEDS: AMPICILLIN PO SCH ×2 (10:07→12:47)
--- NOTE | 2017-01-08 10:19 | PROGRESS NOTE ---
DATE: 01/08/2017 TIME SEEN: 719 SUBJECTIVE: Ms. Jauregui is resting quietly in bed. She has been awoken for her exam. She denies any pain or increased work of breathing. OBJECTIVE: Vital Signs: Her most recent vital signs are temperature 98.3 degrees, blood pressure 156/48, heart rate 67, respirations are 20. She is on 2 L nasal cannula. Last recorded saturation 98%. She has had 865 in. She has had 4850 out per Gan catheter. She is in a negative fluid balance of 7.5 L. Laboratory Data: Sodium 134, potassium 4, chloride is 94, CO2 24, BUN 27, creatinine 1, glucose 117, anion gap 16, calcium 8.9, phosphorus 3.2, albumin 3.7. Previous hemoglobin of 12 on the . Physical Examination: General: This is an 89-year-old, white female. She is resting quietly in bed. She does appear chronically ill. She is in no acute distress. Her skin is warm and dry. HEENT: Normocephalic, atraumatic but continues with some abrasions to her left facial forehead, nose, and left cheek secondary to fall. Her pupils are equal and reactive to light. Neck: Supple. Trachea midline. No JVD. Cardiovascular: She continues with a regular rate and rhythm. She has atrial fibrillation on the monitor. She has a soft systolic murmur. No gallop appreciated. Lungs: Clear to auscultation anteriorly. Equal excursion on O2. Abdomen: Round, soft, nontender. Positive bowel sounds. Extremities: Have no edema. No clubbing or cyanosis. Genitourinary: Gan catheter remains in place. Adequate urine out. Integumentary: As mentioned above. Neurological: Patient is alert to person only. ASSESSMENT AND PLAN: 1. Hyponatremia. This has continued to improve. She is actually at her baseline today of 134. We have held her Samsca. Patient does appear dry, though her labs continue to correct. Adequate urine out. No further intervention at this time. 2. Metabolic encephalopathy. The patient may have some underlying causes, now with correction to her hyponatremia. I would to thank you for allowing us to follow with this patient. Seen, data reviewed, discussed with Ricarda Narayan on 01/08/17. I agree with the above assessment and plan of care. rg Dictated by OTONIEL Goodman for Jr Jordan MD cc: OTONIEL Goodman MD M. Neel Roberts, MD [facility]
--- NOTE | 2017-01-08 13:00 | PROGRESS NOTE ---
DATE: 01/08/2017 SUBJECTIVE: Ms. Jauregui reports she is doing a little bit better today. She reports no shortness of breath. She has been ambulatory with physical therapy. PHYSICAL EXAMINATION: Vital Signs: Afebrile. Heart rate is 68, blood pressure 166/63. General: No acute distress. Cardiovascular: She is in a regular rate and rhythm. She has no murmurs. No S3. No lower extremity edema. Chest: Clear bilaterally. No increased work of breathing. Abdomen: Soft, nontender. PERTINENT DATA: Sodium is up to 132. Potassium is 4. BUN 27, creatinine 1.0. Her I's and O's total -7.6 L. ASSESSMENT: Diastolic heart failure and hyponatremia. PLAN: Patient's hyponatremia is much improved. She will plan to move to rehab today. I would be in agreement with that. She is on oral Lasix at a dose of 20 mg daily, and I would likely continue with this medication. cc: MD Gabi Salazar MD
--- NOTE | 2017-01-08 13:01 | DISCHARGE SUMMARY ---
ADMISSION DATE: 01/04/2017 DISCHARGE DATE: 01/08/2017 DISCHARGE DIAGNOSES: 1. Metabolic encephalopathy secondary to hyponatremia and underlying urinary tract infection. 2. Mild cognitive impairment. 3. Chronic atrial fibrillation with rapid ventricular rate. 4. Chronic respiratory failure. 5. Essential hypertension. 6. Primary hypothyroidism. DISCHARGE INSTRUCTIONS: 1. The patient will be transferred via ambulance to [facility] in order to undergo short-term rehabilitation. 2. Activity as tolerated. 3. Healthy Heart diet with a 1500 mL fluid restriction. MEDICATIONS: Digoxin 250 mcg daily, diltiazem 240 mg daily, Lasix 20 mg daily, Avapro 150 mg daily, levothyroxine 112 mcg daily, multivitamin 1 p.o. daily, KCl 20 mEq b.i.d., Coumadin 7.5 mg at bedtime, ampicillin 500 mg t.i.d. for 7 days. General: This is an elderly, frail, 89-year- old lady in no apparent distress. Vital Signs: She is afebrile. Pulse 80. Respirations 20. Blood pressure 151/58. Cardiovascular: Irregularly irregular. Lungs: Clear. Abdomen: Soft, nontender, with active bowel sounds. HOSPITAL COURSE: Ms. Gurinder Jauregui was brought to [facility] for evaluation of confusion, disorientation, and lethargy. She was unable to get out of bed for the past several days. On arrival to the ER, her serum sodium was 124. We initially checked urine studies, including urine osmolality and urine sodium. She appeared to be mildly volume overloaded. We did not initially feel that she had SIADH. We fluid restricted her and diuresed her with Lasix. Serum sodium trended upward to 129. Her serum sodium later trended down to 122. She was given [address] doses [address] Jordan saw her in consultation. Repeat urine studies were performed. We did not feel that she met a true SIADH pattern. We continued fluid restrictions and diuresis with Lasix, and her serum sodium normalized to 132 at discharge. Her urine culture grew out viridans Streptococcus. She was with complaint of dysuria and increased urinary frequency. She did not have any gross hematuria. We began Rocephin initially on admission, as her urine had a pungent odor. Her symptoms have resolved. She will complete an additional 7-day course of ampicillin 500 mg t.i.d. as an outpatient. The insightful encephalopathy resolved with treatment of the underlying hyponatremia and UTI. She was back to her baseline neurologically. She does have a longstanding history of chronic atrial fibrillation. She was noted to be in atrial fibrillation with RVR and the patient was admitted to the CICU. She was placed on a Cardizem drip. Once her heart rate stabilized, we resumed her oral medications, including digoxin, metoprolol, and Cardizem. Her prothrombin time was subtherapeutic. We increased the Coumadin to 7.5 mg at night. Her INR was 1.4 at discharge. We will continue Coumadin and recheck a prothrombin time as an outpatient in 3 days. Given her overall physical debility, we felt that she would benefit from short-term rehabilitation. Arrangements were made to transfer her to [facility] in order to undergo short- term rehabilitation. CODE STATUS: The patient does have a living will. She has stated that in the event of a cardiopulmonary arrest that she wants no heroic measures to be undertaken. A No Code Blue level 1 was established. cc: Gabi Lyons MD
[2017-01-08 14:52] VITALS: BP 145/54
== END 2017-01-08 15:17 ==
LOC: SUPCPDRO → ED 17:07 → ICU 20:25 → 3S 01-05 15:56
PROVIDERS: ADMIT Internal Medicine; ATTEND Internal Medicine